=== PATIENT | female | born 1985 | race Caucasian/White ===

== ENCOUNTER 2021-02-24 05:31 | Emergency (ER) | payer OTHER ==
[2021-02-24 05:43] VITALS: BMI 17.6
[2021-02-24 08:36] VITALS: BP 97/48; PULSE 58; TEMP 97.4
== END 2021-02-24 13:59 | disposition home or self-care (01) ==
LOC: JER 05:31
DX: F19.10 Other psychoactive substance abuse, uncomplicated (principal)
CPT/HCPCS: 99281-25

== ENCOUNTER 2021-12-14 01:29 | Inpatient (IN) | payer OTHER ==
[2021-12-14 02:02] VITALS: BMI 17.8
[2021-12-14] MEDS ORDERED: METHOCARBAMOL 500 MG TABLET PO PRN (02:13)
[2021-12-14] MEDS ORDERED: MAG HYDROX/AL HYDROX/SIMETH 30 ML UNIT-DOSE CUP PO PRN (02:13)
[2021-12-14] MEDS ORDERED: P-EPHED 60MG/TRIPROLIDI 2.5MG TABLET PO PRN (02:13)
[2021-12-14] MEDS ORDERED: cloNIDine HCL 0.1 MG TABLET PO PRN (02:13)
[2021-12-14] MEDS ORDERED: MAGNESIUM CITRATE 300 ML BOTTLE PO PRN (02:13)
[2021-12-14] MEDS ORDERED: NICOTINE POLACRILEX 2 MG GUM BUC PRN (02:13)
[2021-12-14] MEDS ORDERED: MAGNESIUM HYDROX 2400MG/30ML ORAL SUSPENSION 30 ML CUP PO PRN (02:13)
[2021-12-14] MEDS ORDERED: NALOXONE HCL (KLOXXADO) 8 MG SPRAY NS PRN (02:13)
[2021-12-14] MEDS ORDERED: methaDONE HCL 10 MG TABLET (FOR DETOX USE ONLY) PO ONE ×2 (02:13→12:17)
[2021-12-14] MEDS ORDERED: PROCHLORPERAZINE MALEATE 5 MG TABLET PO PRN (02:13)
[2021-12-14] MEDS ORDERED: BISMUTH SUBSALICYLATE 524 MG/30 ML PO PRN (02:13)
[2021-12-14] MEDS ORDERED: LOPERAMIDE HCL 2 MG CAPSULE PO PRN (02:13)
[2021-12-14] MEDS ORDERED: IBUPROFEN 400 MG TABLET (FP) PO PRN (02:13)
[2021-12-14] MEDS ORDERED: BENZOCAINE/MENTHOL (CHLORASEPTIC ) LOZENGE MM PRN (02:13)
[2021-12-14] MEDS ORDERED: NALOXONE HCL 0.4 MG/ML VIAL IM PRN (02:13)
[2021-12-14] MEDS ORDERED: guaiFENesin 200 MG/10 ML 10 ML UNIT-DOSE CUPS PO PRN (02:13)
[2021-12-14] MEDS ORDERED: ACETAMINOPHEN 325 MG TABLET (FP) PO PRN ×2 (02:13)
[2021-12-14] MEDS ORDERED: DICYCLOMINE HCL 10 MG CAPSULE PO PRN (02:13)
[2021-12-14] MEDS ORDERED: IBUPROFEN 600 MG TABLET (FP) PO PRN (02:13)
[2021-12-14] MEDS: NICOTINE 14 MG/24 HOURS TOPICAL PATCH TD SCH (12:06)
[2021-12-14] MEDS: PRENATAL VITAMINS W/ FOLIC ACID TABLET (FP) PO SCH (12:06)
[2021-12-14] MEDS ORDERED: THIAMINE HCL 100 MG TABLET (FP) PO SCH (22:00)
[2021-12-14] MEDS ORDERED: MELATONIN 5 MG TABLETS PO SCH (22:00)
[2021-12-15] MEDS ORDERED: methaDONE HCL 10 MG TABLET (FOR DETOX USE ONLY) ONE (09:27)
[2021-12-15 09:59] LABS: CALCIUM 8.5 mg/dL (8.5-10.1)
[2021-12-15 10:01] LABS: CREATININE 0.7 mg/dL (0.55-1.3)
[2021-12-15 10:03] LABS: BILIRUBIN,TOTAL 0.2 mg/dL (0.2-1); HEMATOCRIT 34.3 % (32.4-45.2); HEMOGLOBIN 10.8 GM/dL (10.7-15.3); MCH 23.9 pg (25.7-33.7); MCHC 31.5 g/dl (32.0-36.0); MEAN CELL VOLUME 75.7 fl (80-96); MEAN PLT VOLUME 7.8 fl (7.5-11.1); PLATELET COUNT 333 10^3/uL (134-434); RBC 4.53 M/mm3 (3.60-5.2); RDW 17.2 % (11.6-15.6); WHITE BLOOD COUNT 6.5 K/mm3 (4.0-10.0)
[2021-12-15] MEDS: PRENATAL VITAMINS W/ FOLIC ACID TABLET (FP) PO SCH (10:43)
[2021-12-15] MEDS: NICOTINE 14 MG/24 HOURS TOPICAL PATCH TD SCH (10:44)
[2021-12-15 13:17] VITALS: BP 92/50; PULSE 58; TEMP 97.8
[2021-12-16] MEDS ORDERED: methaDONE HCL 10 MG TABLET (FOR DETOX USE ONLY) PO ONE (10:00)
[2021-12-18] MEDS ORDERED: methaDONE HCL 10 MG TABLET (FOR DETOX USE ONLY) PO ONE (10:00)
== END 2021-12-15 14:15 | disposition left against medical advice (07) | DRG 770 ==
LOC: YASAS 01:29 → Y3N 02:19
PROVIDERS: ADMIT Allergy & Immunology; ATTEND Allergy & Immunology
PROC: HZ2ZZZZ Detoxification Services for Substance Abuse Treatment (ICD-10-PCS; principal; 2021-12-14)
DX: F11.23 Opioid dependence with withdrawal (principal); F14.20 Cocaine dependence, uncomplicated; F17.210 Nicotine dependence, cigarettes, uncomplicated; F41.9 Anxiety disorder, unspecified; J45.20 Mild intermittent asthma, uncomplicated; M41.9 Scoliosis, unspecified; S00.11XS Contusion of right eyelid and periocular area, sequela; Y04.0XXS Assault by unarmed brawl or fight, sequela; Z28.310 Unvaccinated for COVID-19; Z91.19 Patient's noncompliance with other medical treatment and regimen; Z59.00 Homelessness unspecified
CPT/HCPCS: 36415; 80053; 81025; 85027; 86780; C9803-CS; U0003; U0005

== ENCOUNTER 2022-03-09 10:49 | Inpatient (IN) | payer OTHER ==
[2022-03-09 11:40] VITALS: BMI 17.8
[2022-03-09] MEDS ORDERED: LOPERAMIDE HCL 2 MG CAPSULE PO PRN (13:11)
[2022-03-09] MEDS ORDERED: methaDONE HCL 10 MG TABLET (FOR DETOX USE ONLY) PO ONE (13:11)
[2022-03-09] MEDS ORDERED: NICOTINE 10 MG CARTRIDGE (INHALER) IH PRN (13:11)
[2022-03-09] MEDS ORDERED: MAG HYDROX/AL HYDROX/SIMETH 30 ML UNIT-DOSE CUP PO PRN (13:11)
[2022-03-09] MEDS ORDERED: IBUPROFEN 400 MG TABLET (FP) PO PRN (13:11)
[2022-03-09] MEDS ORDERED: ACETAMINOPHEN 325 MG TABLET (FP) PO PRN ×2 (13:11)
[2022-03-09] MEDS ORDERED: cloNIDine HCL 0.1 MG TABLET PO PRN (13:11)
[2022-03-09] MEDS ORDERED: DICYCLOMINE HCL 10 MG CAPSULE PO PRN (13:11)
[2022-03-09] MEDS ORDERED: NALOXONE HCL (KLOXXADO) 8 MG SPRAY NS PRN (13:11)
[2022-03-09] MEDS ORDERED: BENZOCAINE/MENTHOL (CHLORASEPTIC ) LOZENGE MM PRN (13:11)
[2022-03-09] MEDS ORDERED: MAGNESIUM CITRATE 300 ML BOTTLE PO PRN (13:11)
[2022-03-09] MEDS ORDERED: MAGNESIUM HYDROX 2400MG/30ML ORAL SUSPENSION 30 ML CUP PO PRN (13:11)
[2022-03-09] MEDS ORDERED: ONDANSETRON *ODT* 4 MG TABLET SL PRN (13:11)
[2022-03-09] MEDS ORDERED: BISMUTH SUBSALICYLATE 524 MG/30 ML PO PRN (13:11)
[2022-03-09] MEDS ORDERED: ALBUTEROL SO4 HFA INHALER IH PRN (13:17)
[2022-03-09] MEDS: METHOCARBAMOL 500 MG TABLET PO PRN (14:57)
[2022-03-09] MEDS: hydrOXYzine PAMOATE 25 MG CAPSULE (FP) PO SCH ×3 (14:57→23:39)
[2022-03-09] MEDS: MELATONIN 5 MG TABLETS PO SCH (23:39)
[2022-03-09] MEDS: THIAMINE HCL 100 MG TABLET (FP) PO SCH (23:39)
[2022-03-10] MEDS: hydrOXYzine PAMOATE 25 MG CAPSULE (FP) PO SCH ×5 (05:53→22:47)
[2022-03-10] MEDS: PRENATAL VITAMINS W/ FOLIC ACID TABLET (FP) PO SCH (10:37)
[2022-03-10] MEDS: METHOCARBAMOL 500 MG TABLET PO PRN ×2 (10:37→22:48)
[2022-03-10] MEDS: IBUPROFEN 600 MG TABLET (FP) PO PRN (22:47)
[2022-03-10] MEDS: THIAMINE HCL 100 MG TABLET (FP) PO SCH (22:48)
[2022-03-11] MEDS: MELATONIN 5 MG TABLETS PO SCH ×2 (00:40→23:26)
[2022-03-11] MEDS: hydrOXYzine PAMOATE 25 MG CAPSULE (FP) PO SCH ×5 (05:27→23:26)
[2022-03-11] MEDS ORDERED: methaDONE HCL 10 MG TABLET (FOR DETOX USE ONLY) PO ONE (10:00)
[2022-03-11] MEDS: PRENATAL VITAMINS W/ FOLIC ACID TABLET (FP) PO SCH (10:11)
[2022-03-11] MEDS: METHOCARBAMOL 500 MG TABLET PO PRN (10:12)
[2022-03-11 11:17] LABS: HEMATOCRIT 36.4 % (32.4-45.2); HEMOGLOBIN 11.8 GM/dL (10.7-15.3); MCH 23.9 pg (25.7-33.7); MCHC 32.4 g/dl (32.0-36.0); MEAN CELL VOLUME 73.8 fl (80-96); MEAN PLT VOLUME 6.9 fl (7.5-11.1); PLATELET COUNT 444 10^3/uL (134-434); RBC 4.94 M/mm3 (3.60-5.2); WHITE BLOOD COUNT 7.6 K/mm3 (4.0-10.0)
[2022-03-11 11:18] LABS: ALBUMIN 3.1 g/dl (3.4-5.0); BLOOD UREA NITROGEN 14.7 mg/dL (7-18); CALCIUM 9.1 mg/dL (8.5-10.1)
[2022-03-11 11:22] LABS: CREATININE 0.7 mg/dL (0.55-1.3)
[2022-03-11 11:23] LABS: BILIRUBIN,TOTAL 0.4 mg/dL (0.2-1)
[2022-03-11] MEDS: THIAMINE HCL 100 MG TABLET (FP) PO SCH (23:26)
[2022-03-12] MEDS: hydrOXYzine PAMOATE 25 MG CAPSULE (FP) PO SCH ×2 (05:41→10:10)
[2022-03-12 08:48] VITALS: RESP 16; TEMP 97.7
[2022-03-12] MEDS: PRENATAL VITAMINS W/ FOLIC ACID TABLET (FP) PO SCH (10:06)
[2022-03-12] MEDS: IBUPROFEN 600 MG TABLET (FP) PO PRN (10:08)
[2022-03-12] MEDS: METHOCARBAMOL 500 MG TABLET PO PRN (10:08)
[2022-03-12 10:14] VITALS: BP 106/67; PULSE 88
[2022-03-13] MEDS ORDERED: methaDONE HCL 10 MG TABLET (FOR DETOX USE ONLY) PO ONE (10:00)
== END 2022-03-12 12:22 | disposition left against medical advice (07) | DRG 770 ==
LOC: YASAS 10:49 → Y6N 13:27
PROVIDERS: ADMIT Allergy & Immunology; ATTEND Surgery
PROC: HZ2ZZZZ Detoxification Services for Substance Abuse Treatment (ICD-10-PCS; principal; 2022-03-09)
DX: F11.23 Opioid dependence with withdrawal (principal); F14.20 Cocaine dependence, uncomplicated; F17.210 Nicotine dependence, cigarettes, uncomplicated; F19.24 Other psychoactive substance dependence with psychoactive substance-induced mood disorder; J45.20 Mild intermittent asthma, uncomplicated; M41.9 Scoliosis, unspecified; R63.4 Abnormal weight loss; Z68.1 Body mass index [BMI] 19.9 or less, adult; Z28.310 Unvaccinated for COVID-19; Z28.9 Immunization not carried out for unspecified reason; Z56.0 Unemployment, unspecified; Z59.00 Homelessness unspecified
CPT/HCPCS: 36415; 80053; 81025; 85027; 86780; 87811; C9803-CS; U0003; U0005

== ENCOUNTER 2022-07-02 07:19 | Inpatient (IN) | payer OTHER ==
[2022-07-02 07:37] VITALS: BMI 19.3
[2022-07-02] MEDS ORDERED: BENZOCAINE/MENTHOL (CHLORASEPTIC ) LOZENGE MM PRN (07:48)
[2022-07-02] MEDS ORDERED: DICYCLOMINE HCL 10 MG CAPSULE PO PRN (07:48)
[2022-07-02] MEDS ORDERED: POLYETHYLENE GLYCOL (HEALTHYLAX) 3350 17 GM PACKET PO PRN (07:48)
[2022-07-02] MEDS ORDERED: METHOCARBAMOL 500 MG TABLET PO PRN (07:48)
[2022-07-02] MEDS ORDERED: ACETAMINOPHEN 325 MG TABLET (FP) PO PRN (07:48)
[2022-07-02] MEDS ORDERED: MAGNESIUM HYDROX 2400MG/30ML ORAL SUSPENSION 30 ML CUP PO PRN (07:48)
[2022-07-02] MEDS ORDERED: cloNIDine HCL 0.1 MG TABLET PO PRN (07:48)
[2022-07-02] MEDS ORDERED: IBUPROFEN 400 MG TABLET (FP) PO PRN (07:48)
[2022-07-02] MEDS ORDERED: ONDANSETRON *ODT* 4 MG TABLET SL PRN (07:48)
[2022-07-02] MEDS ORDERED: MAG HYDROX/AL HYDROX/SIMETH 30 ML UNIT-DOSE CUP PO PRN (07:48)
[2022-07-02] MEDS ORDERED: NICOTINE 10 MG CARTRIDGE (INHALER) IH PRN (07:48)
[2022-07-02] MEDS ORDERED: methaDONE HCL 10 MG TABLET (FOR DETOX USE ONLY) PO ONE (07:48)
[2022-07-02] MEDS ORDERED: BISMUTH SUBSALICYLATE 262 MG/15 ML BTL PO PRN (07:48)
[2022-07-02] MEDS ORDERED: LOPERAMIDE HCL 2 MG CAPSULE PO PRN (07:48)
[2022-07-02] MEDS ORDERED: IBUPROFEN 600 MG TABLET (FP) PO PRN (07:48)
[2022-07-02] MEDS ORDERED: NALOXONE HCL (KLOXXADO) 8 MG SPRAY NS PRN (07:48)
[2022-07-02] MEDS ORDERED: methaDONE HCL 10 MG TABLET (FOR DETOX USE ONLY) ONE (08:24)
[2022-07-02] MEDS: ACETAMINOPHEN 325 MG TABLET (FP) PO PRN ×2 (08:54→16:44)
[2022-07-02] MEDS: NICOTINE 14 MG/24 HOURS TOPICAL PATCH TD SCH (10:25)
[2022-07-02] MEDS: diazePAM 5 MG TABLET PO SCH ×3 (10:25→22:15)
[2022-07-02] MEDS: PRENATAL VITAMINS W/ FOLIC ACID TABLET (FP) PO SCH (10:25)
[2022-07-02] MEDS: CLINDAMYCIN HCL 150 MG CAPSULE (FP) PO SCH ×2 (14:53→22:15)
[2022-07-02] MEDS ORDERED: THIAMINE HCL 100 MG TABLET (FP) PO SCH (22:00)
[2022-07-02] MEDS ORDERED: MELATONIN 5 MG TABLETS PO SCH (22:00)
[2022-07-03] MEDS: CLINDAMYCIN HCL 150 MG CAPSULE (FP) PO SCH ×2 (05:25→13:24)
[2022-07-03] MEDS: diazePAM 5 MG TABLET PO SCH ×2 (05:25→11:37)
[2022-07-03] MEDS: PRENATAL VITAMINS W/ FOLIC ACID TABLET (FP) PO SCH (10:18)
[2022-07-03] MEDS: NICOTINE 14 MG/24 HOURS TOPICAL PATCH TD SCH (10:21)
[2022-07-03 10:24] LABS: HEMATOCRIT 34.4 % (32.4-45.2); HEMOGLOBIN 10.8 GM/dL (10.7-15.3); MCHC 31.4 g/dl (32.0-36.0); MEAN CELL VOLUME 73.2 fl (80-96); MEAN PLT VOLUME 7.1 fl (7.5-11.1); PLATELET COUNT 363 10^3/uL (134-434); RDW 20.5 % (11.6-15.6); WHITE BLOOD COUNT 7.1 K/mm3 (4.0-10.0)
[2022-07-03 11:05] LABS: CALCIUM 9.2 mg/dL (8.5-10.1)
[2022-07-03 11:06] LABS: ALBUMIN 3.1 g/dl (3.4-5.0); BLOOD UREA NITROGEN 12.3 mg/dL (7-18)
[2022-07-03 11:08] LABS: CREATININE 0.6 mg/dL (0.55-1.3)
[2022-07-03 11:09] LABS: BILIRUBIN,TOTAL 0.3 mg/dL (0.2-1)
[2022-07-03 11:10] LABS: TOT PROT 7.2 g/dl (6.4-8.2)
[2022-07-03] MEDS: ACETAMINOPHEN 325 MG TABLET (FP) PO PRN (13:58)
[2022-07-03 14:03] VITALS: BP 114/67; PULSE 85; RESP 18; TEMP 97.3
[2022-07-04] MEDS ORDERED: diazePAM 5 MG TABLET PO SCH (06:00)
[2022-07-04] MEDS ORDERED: methaDONE HCL 10 MG TABLET (FOR DETOX USE ONLY) PO ONE (10:00)
[2022-07-05] MEDS ORDERED: diazePAM 5 MG TABLET PO SCH (06:00)
[2022-07-06] MEDS ORDERED: diazePAM 5 MG TABLET PO ONE (06:00)
[2022-07-06] MEDS ORDERED: methaDONE HCL 10 MG TABLET (FOR DETOX USE ONLY) PO ONE (10:00)
== END 2022-07-03 14:03 | disposition left against medical advice (07) | DRG 770 ==
LOC: YASAS 07:19 → Y6N 08:18
PROVIDERS: ADMIT Allergy & Immunology; ATTEND Surgery
PROC: HZ2ZZZZ Detoxification Services for Substance Abuse Treatment (ICD-10-PCS; principal; 2022-07-02)
DX: F11.23 Opioid dependence with withdrawal (principal); F13.230 Sedative, hypnotic or anxiolytic dependence with withdrawal, uncomplicated; F14.20 Cocaine dependence, uncomplicated; F16.20 Hallucinogen dependence, uncomplicated; F17.210 Nicotine dependence, cigarettes, uncomplicated; F19.280 Other psychoactive substance dependence with psychoactive substance-induced anxiety disorder; F19.24 Other psychoactive substance dependence with psychoactive substance-induced mood disorder; F32.A Depression, unspecified; F41.9 Anxiety disorder, unspecified; J45.909 Unspecified asthma, uncomplicated; K04.7 Periapical abscess without sinus; R63.4 Abnormal weight loss; Z68.1 Body mass index [BMI] 19.9 or less, adult; Z28.310 Unvaccinated for COVID-19; Z28.9 Immunization not carried out for unspecified reason; Z56.0 Unemployment, unspecified; Z59.00 Homelessness unspecified; Z91.018 Allergy to other foods
CPT/HCPCS: 36415; 80053; 81025; 85027; 86780; 87811; C9803-CS; U0003; U0005

== ENCOUNTER 2022-07-19 10:17 | Inpatient (IN) | payer OTHER ==
[2022-07-19 10:52] VITALS: BMI 19.8
[2022-07-19] MEDS ORDERED: ACETAMINOPHEN 325 MG TABLET (FP) PO PRN ×2 (11:58)
[2022-07-19] MEDS ORDERED: IBUPROFEN 600 MG TABLET (FP) PO PRN (11:58)
[2022-07-19] MEDS ORDERED: NALOXONE HCL (KLOXXADO) 8 MG SPRAY NS PRN (11:58)
[2022-07-19] MEDS ORDERED: BENZOCAINE/MENTHOL (CHLORASEPTIC ) LOZENGE MM PRN (11:58)
[2022-07-19] MEDS ORDERED: MAGNESIUM HYDROX 2400MG/30ML ORAL SUSPENSION 30 ML CUP PO PRN (11:58)
[2022-07-19] MEDS ORDERED: DICYCLOMINE HCL 10 MG CAPSULE PO PRN (11:58)
[2022-07-19] MEDS ORDERED: MAG HYDROX/AL HYDROX/SIMETH 30 ML UNIT-DOSE CUP PO PRN (11:58)
[2022-07-19] MEDS ORDERED: POLYETHYLENE GLYCOL (HEALTHYLAX) 3350 17 GM PACKET PO PRN (11:58)
[2022-07-19] MEDS ORDERED: LOPERAMIDE HCL 2 MG CAPSULE PO PRN (11:58)
[2022-07-19] MEDS ORDERED: IBUPROFEN 400 MG TABLET (FP) PO PRN (11:58)
[2022-07-19] MEDS ORDERED: ONDANSETRON *ODT* 4 MG TABLET SL PRN (11:58)
[2022-07-19] MEDS ORDERED: cloNIDine HCL 0.1 MG TABLET PO PRN (11:58)
[2022-07-19] MEDS ORDERED: methaDONE HCL 10 MG TABLET (FOR DETOX USE ONLY) PO ONE (11:58)
[2022-07-19] MEDS ORDERED: BISMUTH SUBSALICYLATE 262 MG/15 ML BTL PO PRN (11:58)
[2022-07-19] MEDS: PRENATAL VITAMINS W/ FOLIC ACID TABLET (FP) PO SCH (13:08)
[2022-07-19] MEDS: METHOCARBAMOL 500 MG TABLET PO PRN (14:23)
[2022-07-19] MEDS: diazePAM 5 MG TABLET PO PRN (14:23)
[2022-07-19] MEDS: hydrOXYzine PAMOATE 25 MG CAPSULE (FP) PO PRN (14:23)
[2022-07-19] MEDS: diazePAM 5 MG TABLET PO SCH ×2 (17:50→22:13)
[2022-07-19] MEDS: MELATONIN 5 MG TABLETS PO SCH (22:14)
[2022-07-19] MEDS: THIAMINE HCL 100 MG TABLET (FP) PO SCH (22:14)
[2022-07-20] MEDS: diazePAM 5 MG TABLET PO SCH ×4 (05:36→22:04)
[2022-07-20] MEDS: PRENATAL VITAMINS W/ FOLIC ACID TABLET (FP) PO SCH (10:34)
[2022-07-20] MEDS: hydrOXYzine PAMOATE 25 MG CAPSULE (FP) PO PRN ×2 (10:36→17:16)
[2022-07-20] MEDS: METHOCARBAMOL 500 MG TABLET PO PRN ×2 (10:36→22:05)
[2022-07-20] MEDS: diazePAM 5 MG TABLET PO PRN (15:03)
[2022-07-20] MEDS: MELATONIN 5 MG TABLETS PO SCH (22:03)
[2022-07-20] MEDS: THIAMINE HCL 100 MG TABLET (FP) PO SCH (22:04)
[2022-07-21] MEDS: METHOCARBAMOL 500 MG TABLET PO PRN (05:41)
[2022-07-21] MEDS: NICOTINE 10 MG CARTRIDGE (INHALER) IH PRN ×2 (05:42→06:27)
[2022-07-21] MEDS ORDERED: diazePAM 5 MG TABLET PO SCH (06:00)
[2022-07-21] MEDS: ALBUTEROL SO4 HFA INHALER IH SCH ×2 (07:01→07:22)
[2022-07-21] MEDS: diazePAM 5 MG TABLET PO PRN (08:52)
[2022-07-21 09:33] VITALS: BP 111/77; PULSE 84; RESP 17; TEMP 98
[2022-07-21] MEDS ORDERED: methaDONE HCL 10 MG TABLET (FOR DETOX USE ONLY) PO ONE (10:00)
[2022-07-21] MEDS: PRENATAL VITAMINS W/ FOLIC ACID TABLET (FP) PO SCH (10:00)
[2022-07-22] MEDS ORDERED: diazePAM 5 MG TABLET PO SCH (06:00)
[2022-07-23] MEDS ORDERED: diazePAM 5 MG TABLET PO ONE (06:00)
[2022-07-23] MEDS ORDERED: methaDONE HCL 10 MG TABLET (FOR DETOX USE ONLY) PO ONE (10:00)
== END 2022-07-21 09:52 | disposition left against medical advice (07) | DRG 770 ==
LOC: YASAS 10:17 → Y6N 13:27
PROVIDERS: ADMIT Allergy & Immunology; ATTEND Family Medicine
PROC: HZ2ZZZZ Detoxification Services for Substance Abuse Treatment (ICD-10-PCS; principal; 2022-07-19)
DX: F11.23 Opioid dependence with withdrawal (principal); F13.20 Sedative, hypnotic or anxiolytic dependence, uncomplicated; F14.20 Cocaine dependence, uncomplicated; F17.210 Nicotine dependence, cigarettes, uncomplicated; J45.909 Unspecified asthma, uncomplicated; R63.4 Abnormal weight loss; Z68.1 Body mass index [BMI] 19.9 or less, adult; Z86.79 Personal history of other diseases of the circulatory system; Z28.310 Unvaccinated for COVID-19; Z28.9 Immunization not carried out for unspecified reason; Z56.0 Unemployment, unspecified; Z59.00 Homelessness unspecified
CPT/HCPCS: 87811; C9803-CS; U0003; U0005